=== PATIENT | female | born 1995 | race Caucasian/White ===

== ENCOUNTER 2022-07-18 00:05 | Inpatient (IN) | payer OTHER ==
[~2022-07-18] VITALS: Ht 152.4 cm; Wt 83.5 kg
--- NOTE | 2022-07-18 00:34 | NUR ---
both nares swabbed, sent test to lab
--- NOTE | 2022-07-18 12:11 | PR ---
[facility] [address] [facility] [place], [place] [address] Signed Progress Notes IP Datetime Report Generated by CPN: 07/18/2022 12:11 PROGRESS NOTES: [id number] Impression: Reassuring Heart Rate Procedures: Sterile Vag Exam Plan: Continue Present Management VITAL SIGNS: [id number] Vital Signs: Reviewed; Within Normal Limits EXAM: [id number] Dilatation: 1.5 Effacement: 50 Station: -3 Contractions: q 2 to 4 min MEMBRANES: [id number] Comments: Some progress. AROM attempted but no fluid seen. Will continue. FETUS A: [id number] FHR Baseline: 140 Variability: Moderate 6-25bpm Accelerations: 15X15 Decelerations: None FHR Category: Category I Presentation: Vertex Comments on Fetus A: no evidence of metabolic acidosis FETUS B: [id number] Signing Physician: Janki Trujillo MD Copies: ~ *Electronically Signed* 07/18/22 1211 JANKI TRUJILLO MD PATIENT NAME: BONBRANDON YUNIOR PROGRESS NOTE DATE OF : [birth year] PHYSICIAN: JANKI TRUJILLO MD RPT #: [id number] REPORT IS CONFIDENTIAL AND NOT TO BE RELEASED WITHOUT AUTHORIZATION
--- NOTE | 2022-07-18 16:34 | PR ---
[facility] [address] [place], [place] [address] Signed Progress Notes IP Datetime Report Generated by CPN: 07/18/2022 16:34 PROGRESS NOTES: [id number] Impression: Reassuring Heart Rate Procedures: Intrauterine Pressure Catheter; Sterile Vag Exam Plan: Augmentation VITAL SIGNS: [id number] Vital Signs: Reviewed; Within Normal Limits EXAM: [id number] Dilatation: 2.5 Effacement: 50 Station: -2 Contractions: q 2 to 4 min MEMBRANES: [id number] ROM Note: AROM attempted by Ronnie ELLIS at this time, unsuccessful Comments: Comfortable after epidural but with recent episode of hypotension. Very slow progress and feel contractions likely inadequate. Will place IUPC and augment as contractions inadequate after placement. FETUS A: [id number] FHR Baseline: 140 Variability: Moderate 6-25bpm Accelerations: 15X15 Decelerations: None FHR Category: Category I Presentation: Vertex Comments on Fetus A: no evidence of metabolic acidosis FETUS B: [id number] Signing Physician: Janki Trujillo MD Copies: ~ *Electronically Signed* 07/18/22 1634 JANKI TRUJILLO MD PATIENT NAME: BRANDON CROCKETT PROGRESS NOTE DATE OF : [birth year] PHYSICIAN: JANKI TRUJILLO MD RPT #: [id number] REPORT IS CONFIDENTIAL AND NOT TO BE RELEASED WITHOUT AUTHORIZATION
--- NOTE | 2022-07-20 07:35 | PR ---
[facility] [address] [facility] [place] [address] Signed PP Progress Notes Datetime Report Generated by CPN: 07/20/2022 07:35 SUBJECTIVE: [id number] Pain: Within Normal Limits Vital Signs: [id number] Vital Signs: Reviewed; Within Normal Limits Cardiovascular: Not Done Respiratory: Not Done Abdomen/Uterus: Abnormal Lochia: Normal Vulva/Perineum: Not Done Breasts: Not Done CVA Tenderness: Not Done Extremities: Normal Incision: Not Applicable Progress: Normal Exam Comments: Fundus firm, NT @ U-2. H/H 10.4/30.5, WBC 13.9, plat 287k IMPRESSION/PLAN/PROCEDURES: [id number] Impression: Normal Progression Plan: Discharge Procedures: Rhogam Progress Notes: Doing well. She desires D/C. Signing Physician: Janki Trujillo MD Copies: ~ *Electronically Signed* 07/20/22 0735 JANKI TRUJILLO MD PATIENT NAME: BRANDON CROCKETT PROGRESS NOTE DATE OF : [birth year] PHYSICIAN: JANKI TRUJILLO MD RPT #: [id number] REPORT IS CONFIDENTIAL AND NOT TO BE RELEASED WITHOUT AUTHORIZATION
== END 2022-07-20 10:45 | disposition home or self-care (01) | DRG 807 ==
LOC: FBC 00:05
PROVIDERS: ADMIT Obstetrics & Gynecology; ATTEND Obstetrics & Gynecology
PROC: 10E0XZZ Delivery of Products of Conception, External Approach (ICD-10-PCS; principal; 2022-07-18)
PROC: 0HQ9XZZ Repair Perineum Skin, External Approach (ICD-10-PCS; 2022-07-18)
PROC: 3E0P7VZ Introduction of Hormone into Female Reproductive, Via Natural or Artificial Opening (ICD-10-PCS; 2022-07-18)
PROC: 3E0R3BZ Introduction of Anesthetic Agent into Spinal Canal, Percutaneous Approach (ICD-10-PCS; 2022-07-18)
DX: O70.0 First degree perineal laceration during delivery (principal); Z37.0 Single live birth; O69.1XX0 Labor and delivery complicated by cord around neck, with compression, not applicable or unspecified; O99.334 Smoking (tobacco) complicating childbirth; F17.210 Nicotine dependence, cigarettes, uncomplicated; Z67.11 Type A blood, Rh negative; Z20.822 Contact with and (suspected) exposure to COVID-19; Z3A.39 39 weeks gestation of pregnancy; Z79.899 Other long term (current) drug therapy
CPT/HCPCS: 36415; 83030; 85027; 86850; 86900; 86901; 87502; A9270; C9803; J2590; J2790; J7121; U0003

== ENCOUNTER 2023-10-23 00:04 | Inpatient (IN) | payer OTHER ==
[~2023-10-23] VITALS: Ht 152.4 cm; Wt 83.5 kg
[~2023-10-23 00:04] MED LIST: CALCIUM CARBONATE 500 MG CHEW PO PRN; LACTATED RINGER'S 1,000 ML IV SCH; MAGNESIUM HYDROXIDE/AL HYDROX 30 ML CUP PO PRN; miSOPROStoL 25 MCG TAB PV SCH
[2023-10-23] MEDS ORDERED: OXYTOCIN/DEXTROSE 5% 20 UNITS/100 ML BAG IV SCH (00:15)
[2023-10-23] MEDS ORDERED: LIDOCAINE 2% VISCOUS 6 ML SYR TOP ONE ×3 (00:15→17:30)
[2023-10-23 01:00] VITALS: BP 120/60
[2023-10-23 01:13] LABS: HEMATOCRIT 32.3 % (35.0-50.0); HEMOGLOBIN 11.1 g/dL (12.0-18.0); MCH 31.2 (27-36); MCHC 34.3 g/dl (30-36); MCV 90.9 fl (81-99); RBC 3.55 M/ul (4.3-5.7)
[2023-10-23 02:00] LABS: ABO A; ANTIBODY SCREEN POSITIVE; RH NEGATIVE
[2023-10-23 02:01] LABS: ANTIBODY IDENTIFICATION ANTI-D
[2023-10-23 03:11] LABS: AMPHETAMINES, URINE NEGATIVE (NEGATIVE); BARBITURATES, URINE NEGATIVE (NEGATIVE); BENZODIAZEPINE, URINE NEGATIVE (NEGATIVE); BUPRENORPHINE, URINE NEGATIVE (NEGATIVE); CANNABINOID, URINE NEGATIVE (NEGATIVE); COCAINE, URINE NEGATIVE (NEGATIVE); ECSTASY, URINE NEGATIVE (NEGATIVE); FENTANYL, URINE NEGATIVE (NEGATIVE); METHADONE, URINE NEGATIVE (NEGATIVE); OPIATES, URINE NEGATIVE (NEGATIVE); OXYCODONE, URINE NEGATIVE (NEGATIVE); PHENCYCLIDINE, URINE NEGATIVE (NEGATIVE)
[2023-10-23] MEDS ORDERED: ROPIVACAINE 0.2% 200 ML BAG ONE (08:54)
[2023-10-23] MEDS ORDERED: fentaNYL citrate 100 MCG/2 ML VIAL ONE (08:54)
[2023-10-23] MEDS ORDERED: OXYTOCIN/0.9 % SODIUM CHLORIDE 500 ML IV SCH ×2 (12:00→17:30)
--- NOTE | 2023-10-23 13:07 | PR ---
[facility] [address] [facility] [place], [place] [address] Signed Progress Notes IP Datetime Report Generated by CPN: 10/23/2023 13:07 PROGRESS NOTES: [id number] Impression: Reassuring Heart Rate Procedures: Intrauterine Pressure Catheter Plan: Continue Present Management VITAL SIGNS: [id number] Vital Signs: Reviewed; Within Normal Limits EXAM: [id number] Dilatation: 3.0 Effacement: 40 Station: -2 Contractions: not picking up well MEMBRANES: [id number] Comments: Not much progress. Contractions not picking up well. Will place IUPC and increase pitocin as needed. FETUS A: [id number] FHR Baseline: 140 Variability: Moderate 6-25bpm Accelerations: 15X15 Decelerations: None FHR Category: Category I Presentation: Vertex Comments on Fetus A: no evidence of metabolic acidosis FETUS B: [id number] Signing Physician: Janki Trujillo MD Copies: ~ *Electronically Signed* 10/23/23 1307 JANKI TRUJILLO MD PATIENT NAME: BONBRANDON YUNIOR PROGRESS NOTE DATE OF : [birth year] PHYSICIAN: JANKI TRUJILLO MD RPT #: [id number] REPORT IS CONFIDENTIAL AND NOT TO BE RELEASED WITHOUT AUTHORIZATION
[2023-10-23] MEDS ORDERED: Ropivacaine HCl 0.5% 30 ML VIAL ONE (16:02)
[2023-10-23] MEDS ORDERED: dexmedeTOMIDine HCl 200 MCG/2 ML VIAL ONE (16:03)
[2023-10-23] MEDS ORDERED: TRANEXAMIC ACID IN NACL,ISO-OS 100 ML IV ONE (17:12)
[2023-10-23] MEDS ORDERED: IBUPROFEN 600 MG TAB PO PRN (17:30)
[2023-10-23] MEDS ORDERED: METHYLERGONOVINE MALEATE 0.2 MG/ML AMP IM ONE (17:30)
[2023-10-23] MEDS ORDERED: MAGNESIUM HYDROXIDE/AL HYDROX 30 ML CUP PO PRN (17:30)
[2023-10-23] MEDS ORDERED: HYDROCORTISONE ACETATE 25 MG SUPP PR PRN (17:30)
[2023-10-23] MEDS ORDERED: WITCH HAZEL/GLYCERIN 1 EA PAD TOP PRN (17:30)
[2023-10-23] MEDS ORDERED: HYDROCODONE/ACETA 5/325 TAB PO PRN (17:30)
[2023-10-23] MEDS ORDERED: MAGNESIUM HYDROXIDE 30 ML UDC PO PRN (17:30)
[2023-10-23] MEDS ORDERED: ACETAMINOPHEN 325 MG TAB PO PRN (17:30)
[2023-10-23] MEDS ORDERED: CALCIUM CARBONATE 500 MG CHEW PO PRN (17:30)
[2023-10-23] MEDS ORDERED: BENZOCAINE 60 ML AEROSOL TOP PRN (17:30)
[2023-10-23] MEDS ORDERED: SENNOSIDES/DOCUSATE 1 EA TAB PO SCH (21:00)
[2023-10-24 05:45] LABS: HEMATOCRIT 32.5 % (35.0-50.0); MCH 31.3 (27-36); MCV 92.1 fl (81-99); RBC 3.53 M/ul (4.3-5.7); RDW 12.7 (10.5-15.0)
[2023-10-24 06:46] LABS: ABO A; ANTIBODY SCREEN NEGATIVE; RH NEGATIVE; RHIG VIAL 1 RG23003-C
[2023-10-24 06:47] LABS: FETAL HEMOGLOBIN SCREEN NEGATIVE; RHIG DOSE 1; RHIG STATUS CANDIDATE
--- NOTE | 2023-10-24 10:23 | PR ---
[facility] [place] [facility] [address] [facility] [place], [place] [address] Signed PP Progress Notes Datetime Report Generated by CPN: 10/24/2023 10:23 SUBJECTIVE: [id number] Pain: Within Normal Limits Nausea/Vomiting: Denies Vital Signs: [id number] Vital Signs: Reviewed; Within Normal Limits Cardiovascular: Not Done Respiratory: Not Done Abdomen/Uterus: Abnormal Lochia: Normal Vulva/Perineum: Not Done Breasts: Not Done CVA Tenderness: Not Done Extremities: Normal Incision: Not Applicable Progress: Normal Exam Comments: Fundus firm, NT @ U-2. H/H 11/32.5, WBC 14.1, plat 226k IMPRESSION/PLAN/PROCEDURES: [id number] Impression: Normal Progression Plan: Discharge Procedures: Rhogam Progress Notes: Doing well. She desires D/C at 24 hrs. Signing Physician: Janki Trujillo MD Copies: ~ *Electronically Signed* 10/24/23 1023 JANKI TRUJILLO MD PATIENT NAME: BRANDON CROCKETT PROGRESS NOTE DATE OF : [birth year] PHYSICIAN: JANKI TRUJILLO MD RPT #: [id number] REPORT IS CONFIDENTIAL AND NOT TO BE RELEASED WITHOUT AUTHORIZATION
== END 2023-10-24 20:10 | disposition home or self-care (01) | DRG 807 ==
LOC: FBC 00:04
PROVIDERS: ADMIT Obstetrics & Gynecology; ATTEND Obstetrics & Gynecology
PROC: 10E0XZZ Delivery of Products of Conception, External Approach (ICD-10-PCS; principal; 2023-10-23)
PROC: 10907ZC Drainage of Amniotic Fluid, Therapeutic from Products of Conception, Via Natural or Artificial Opening (ICD-10-PCS; 2023-10-23)
PROC: 3E0P7VZ Introduction of Hormone into Female Reproductive, Via Natural or Artificial Opening (ICD-10-PCS; 2023-10-23)
PROC: 10H07YZ Insertion of Other Device into Products of Conception, Via Natural or Artificial Opening (ICD-10-PCS; 2023-10-23)
PROC: 4A1HXCZ Monitoring of Products of Conception, Cardiac Rate, External Approach (ICD-10-PCS; 2023-10-23)
PROC: 3E0234Z Introduction of Serum, Toxoid and Vaccine into Muscle, Percutaneous Approach (ICD-10-PCS; 2023-10-24)
DX: O26.893 Other specified pregnancy related conditions, third trimester (principal); Z37.0 Single live birth; Z3A.39 39 weeks gestation of pregnancy; O69.81X0 Labor and delivery complicated by cord around neck, without compression, not applicable or unspecified; Z67.11 Type A blood, Rh negative; Z23 Encounter for immunization; O75.89 Other specified complications of labor and delivery; O99.344 Other mental disorders complicating childbirth; F41.9 Anxiety disorder, unspecified; F32.A Depression, unspecified; O99.334 Smoking (tobacco) complicating childbirth; F17.290 Nicotine dependence, other tobacco product, uncomplicated
CPT/HCPCS: 36415; 80307; 83030; 85027; 86850; 86870; 86900; 86901; A9270; J2210; J2590; J2790; J2795; J3010

== ENCOUNTER 2023-12-19 06:00 | Day surgery (SDC) | payer BC, OTHER ==
[2023-12-10 11:21] VITALS: BP 112/70
[~2023-12-19] VITALS: Ht 152.4 cm; Wt 78.6 kg
--- NOTE | ~2023-12-19 | OR ---
[facility] [address] [place], [place] [address] Draft DATE OF OPERATION: 12/19/2023 SURGEON: Janki Trujillo MD PREOPERATIVE DIAGNOSIS: Risk reducing salpingectomy, undesired fertility. POSTOPERATIVE DIAGNOSIS: Risk reducing salpingectomy, undesired fertility. PROCEDURE: Laparoscopy with bilateral salpingectomy. ANESTHESIA: General ET. ESTIMATED BLOOD LOSS: Minimal. DRAINS: None. INDICATIONS AND FINDINGS: The patient is a 28-year-old female, 3, para 3, status post recent vaginal delivery approximately 8 weeks ago who desired risk reducing salpingectomy. She has been extensively counseled. She understood this would render her sterile. At the time of surgery, exam under anesthesia was normal. At the time of laparoscopy, the tubes and ovaries were normal. There was a soft area on the uterus just below the left cornu, which was left undisturbed. DESCRIPTION OF PROCEDURE: The patient was prepped and draped in the dorsal lithotomy position. An open-sided speculum was placed. The anterior lip of the cervix was visualized and grasped with single-tooth tenaculum. The Hulka clamp was then placed and the tenaculum and speculum were removed. Attention was directed above the infraumbilical area was injected with 0.5% Marcaine plain. An incision was made with a knife, and each layer serially elevated incised until the fascia was opened and identified and stay sutures of 0 Vicryl were placed. The abdomen was entered bluntly and Yvon cannula placed. Placement of the scope confirmed proper positioning. CO2 was then introduced into the abdomen under low pressures. The pelvis was visualized and the planned procedure appeared PATIENT NAME: BRANDON CROCKETT OPERATIVE REPORT DATE OF : [birth year] REPORT #: [id number] PHYSICIAN: JANKI TRUJILLO MD PCP: JANKI TRUJILLO MD REPORT IS CONFIDENTIAL AND NOT TO BE RELEASED WITHOUT AUTHORIZATION [facility] [address] [place], [place] [address] Draft appropriate. The secondary ports were placed. These were placed laterally slightly below the level of the umbilicus. Each of these areas was transilluminated, injected with the Marcaine, incision made with a knife and the trocars placed under direct vision. These were 5 mm ports. The patient's right tube was identified and the LigaSure [place] device was used to serially coagulate the mesosalpinx from the fimbriated end to the cornu and divided. The specimen was repeated through the port. The same procedure was carried out on the patient's left tube. Following this, there was some bleeding along the left mesosalpinx and this was controlled with the LigaSure device. The abdomen was copiously irrigated inspected and good hemostasis was noted. The instruments removed from the abdomen after allowing as much CO2 as possible to escape. The fascial incision of the umbilicus was re-identified and closed with a running suture of 0 Vicryl. Bleeding points in the subcu were controlled with cautery. The skin incisions were closed with subcuticular sutures of 3-0 Vicryl Rapide. Attention was directed down below, the inserts removed. There was initially some bleeding from the Hulka site, but this did respond to pressure. All sponge and needle counts were correct. She was taken to the recovery room in good condition. MD AFIA Le/YAIMA /[id number] Copies: ~ PATIENT NAME: BRANDON CROCKETT OPERATIVE REPORT DATE OF : [birth year] REPORT #: [id number] PHYSICIAN: JANKI TRUJILLO MD PCP: JANKI TRUJILLO MD REPORT IS CONFIDENTIAL AND NOT TO BE RELEASED WITHOUT AUTHORIZATION
[~2023-12-19 06:00] MED LIST changes: +BUPROPION HCL150 M2 PO; -CALCIUM CARBONATE 500 MG CHEW PO PRN; +CRANBERRY125 MG PO; +ECHINACEA EXTR125 MG PO; +IRON325 M1 PO; -MAGNESIUM HYDROXIDE/AL HYDROX 30 ML CUP PO PRN; +[UNRECOGNIZED DRUG - OTHER] PO; -miSOPROStoL 25 MCG TAB PV SCH
[2023-12-19 06:13] VITALS: BP 115/65
[2023-12-19] MEDS ORDERED: MIDAZOLAM HCL 2 MG/2 ML VIAL ONE (06:33)
[2023-12-19] MEDS ORDERED: LACTATED RINGER'S 1,000 ML IV ONE (06:33)
[2023-12-19] MEDS ORDERED: DEXAMETHASONE SOD PHOS 4 MG/ML VIAL ONE (06:33)
[2023-12-19] MEDS ORDERED: KETOROLAC TROMETHAMINE 30 MG/ML VIAL ONE (06:33)
[2023-12-19] MEDS ORDERED: ROCURONIUM BROMIDE 50 MG/5 ML SYR ONE (06:33)
[2023-12-19] MEDS ORDERED: propofoL 200 MG/20 ML VIAL ONE (06:33)
[2023-12-19] MEDS ORDERED: FAMOTIDINE 20 MG/ 2 ML VIAL ONE (06:33)
[2023-12-19] MEDS ORDERED: LIDOCAINE HCL 4% 5 ML AMP ONE (06:33)
[2023-12-19] MEDS ORDERED: fentaNYL citrate 100 MCG/2 ML VIAL ONE (06:33)
[2023-12-19] MEDS ORDERED: ondansetron HCL 4 MG/2 ML VIAL ONE (06:33)
[2023-12-19] MEDS ORDERED: SUGAMMADEX SODIUM 200 MG/2 ML ML ONE (06:33)
[2023-12-19] MEDS ORDERED: SUCCINYLCHOLINE IN 0.9% NACL 200 MG/10 ML SYRINGE ONE (06:33)
[2023-12-19] MEDS ORDERED: METOCLOPRAMIDE HCL 10 MG/2 ML SDV ONE (06:33)
[2023-12-19] MEDS ORDERED: BUPIVACAINE HCL 0.5% 30 ML VIAL ONE (06:43)
[2023-12-19] MEDS ORDERED: IBLOOD GLUCOSE TEST STRIP 1 EA TEST VI PRN ×2 (07:00→07:45)
[2023-12-19] MEDS ORDERED: METOCLOPRAMIDE HCL 10 MG/2 ML SDV IV SCH (07:00)
[2023-12-19] MEDS ORDERED: LIDOCAINE HCL 1% 5 ML SDV INJ ONE (07:00)
[2023-12-19] MEDS ORDERED: FAMOTIDINE 20 MG/ 2 ML VIAL IV SCH (07:00)
[2023-12-19] MEDS ORDERED: fentaNYL citrate 50 MCG/ML SDV IV PRN (07:45)
[2023-12-19] MEDS ORDERED: ondansetron HCL 4 MG/2 ML VIAL IV PRN ×2 (07:45→08:15)
[2023-12-19] MEDS ORDERED: NALOXONE HCL 0.4 MG SYR IV PRN ×2 (07:45→08:15)
[2023-12-19] MEDS ORDERED: droPERidol 5 MG/2 ML VIAL IV PRN (07:45)
[2023-12-19] MEDS ORDERED: METOCLOPRAMIDE HCL 10 MG/2 ML SDV IV PRN ×2 (07:45→08:15)
[2023-12-19] MEDS ORDERED: PROCHLORPERAZINE EDISYLATE 10 MG/2 ML VIAL IV PRN ×2 (07:45→08:15)
[2023-12-19] MEDS ORDERED: MORPHINE SULFATE 10 MG/ML VIAL IV PRN ×2 (07:45→08:15)
[2023-12-19] MEDS ORDERED: ACETAMINOPHEN 500 MG TAB PO SCH (08:15)
[2023-12-19] MEDS ORDERED: SIMETHICONE 125 MG TABLET CHEWABLE PO PRN (08:15)
[2023-12-19] MEDS ORDERED: LACTATED RINGER'S 1,000 ML IV SCH (08:15)
[2023-12-19] MEDS ORDERED: FAMOTIDINE 20 MG TAB PO PRN (08:15)
[2023-12-19] MEDS ORDERED: MAGNESIUM HYDROXIDE/AL HYDROX 30 ML CUP PO PRN (08:15)
[2023-12-19] MEDS ORDERED: ondansetron HCL 4 MG TAB PO PRN (08:15)
[2023-12-19] MEDS ORDERED: OXYCODONE HCL 5 MG TAB PO PRN (08:15)
--- NOTE | 2023-12-19 08:41 | NUR ---
12/19/23 0841 Carol Sandoval 0811 PT ARRIVED IN PACU NON RESPONSIVE TO NOXIOUS STIMULI WITH OPA IN PLACE. CHIN LIFT HELD BY RN. 0820 REPOSITIONED HEAD TO KEEP AIRWAY OPEN WITHOUT CHIN LIFT. 0832 PT REACTIVE. OPA REMOVED. 0840 OXYGEN REMOVED. SATS 100% ON RA. NO C/O'S.
[2023-12-19 08:52] VITALS: BP 100/61
--- NOTE | 2023-12-19 08:54 | NUR ---
DARRION 0850: PT IS BACK TO DS FROM PACU. IS AT THE BEDSIDE. CALL LIGHT WITHIN REACH. SHE WOULD LIKE WATER, APPLE JUICE, AND DELIA CRACKERS. NO C/O PAIN OR NAUSEA. DC CRITERIA REVIEWED WITH PT AND .
[2023-12-19 09:51] VITALS: BP 100/51
--- NOTE | 2023-12-19 09:52 | NUR ---
DARRION 0950: PT IS TOLERATING WATER, APPLE JUICE, DELIA CRACKERS, AND JELLO. SHE DENIES NAUSEA. IS AT THE BEDSIDE. PT WOULD LIKE TO GET UP TRY AND USE THE BATHROOM.
--- NOTE | 2023-12-19 10:27 | NUR ---
LE 0955: PT IS ASSISTED UP OOB WITH STANDBY ASSIST TO THE BATHROO. SHE IS ABLE TO VOID 100MLS OF YELLOW URINE. SHE AMBUALTES BACK TO HER ROOM. SHE INDICATES THAT SHE WOULD LIKE TO GO HOME AT THIS TIME. SHE IS EDUCATED ON HOW TO BEST DRESS HERSELF AND TO OPEN HER CURTAIN WHEN READY. SHE WOULD LIKE TYLENOL FOR THE DRIVE HOME. LE 1010: PT'S UMBILICAL SITE IS OOZING, THE BANDIAD IS REMOVED AND REPLACED WITH GAUZE PADS AND MEDIPORE TAPE. LE 1017: PT AND ARE GIVEN WRITTEN AND VERBAL DC INSTRUCTIONS. THEY BOTH VERBALIZE UNDERSTANDING. QUESTIONS ARE ASKED AND ANSWERED. LE 1020: PT IS TAKEN TO PERSONAL VEHICLE VIA WC. SHE IS ABLE TO TRANSFER HERSELF FROM WC TO CAR WITHOUT ISSUES.
[2023-12-19] MEDS ORDERED: IBUPROFEN 800 MG TAB PO SCH (14:00)
--- NOTE | 2023-12-21 14:56 | PATH ---
[facility] [address] [place], [place] [address] Signed SPECIMEN(S): A BILATERAL FALLOPIAN TUBES SPECIMEN SOURCE: A. BILATERAL FALLOPIAN TUBES CLINICAL HISTORY: Risk reduction ovarian cancer; patient desires sterilization FINAL PATHOLOGIC DIAGNOSIS: Bilateral fallopian tubes: - Two segments of benign fimbriated oviducts. JVR:clv MICROSCOPIC EXAMINATION: Histologic sections of all submitted blocks are examined by light microscopy. These findings, together with the gross examination, support the pathologic diagnosis. GROSS DESCRIPTION: The specimen, labeled and designated "Shon Crockett, bilateral fallopian tubes," is received in formalin and consists of 2 fallopian tubes with attached fimbriated ends. The first fallopian tube measures 6.0 cm in length by 0.6 cm in greatest diameter. The second fallopian tube measures 6.8 cm in length by 0.5 cm in greatest diameter with 3 peritubular cysts range size from less than 0.1 to 0.6 cm. Ward Maid sections submitted in cassettes A1 and A2 respectively. JM (under the direct supervision of a pathologist) The Gross Description was prepared using a voice recognition system. The report was reviewed for accuracy; however, sound-alike word errors, addition and/or deletions may occur. If there is any question about this report, please contact Client Services. PERFORMING LABORATORY: Technical component was performed by [facility], [address] [place] [id number] (CLIA# [id number]). Professional interpretation was performed by [facility], [address] [place] [id number] (CLIA#: [id number]). Diagnostician: Jose Mack MD Pathologist Electronically Signed 12/21/2023 PATIENT NAME: BRANDON CROCKETT PATHOLOGY DATE OF : [birth year] REPORT #: [id number] PHYSICIAN: [facility] PCP: AUNDREA ANGELO MD REPORT IS CONFIDENTIAL AND NOT TO BE RELEASED WITHOUT AUTHORIZATION [address] [address] Signed Copies: ~ PATIENT NAME: BRANDON CROCKETT PATHOLOGY DATE OF : [birth year] REPORT #: [id number] PHYSICIAN: [facility] PCP: AUNDREA ANGELO MD REPORT IS CONFIDENTIAL AND NOT TO BE RELEASED WITHOUT AUTHORIZATION
== END 2023-12-19 10:20 | disposition home or self-care (01) ==
LOC: DS 06:00
PROVIDERS: ATTEND Obstetrics & Gynecology
PROC: 0UT74ZZ Resection of Bilateral Fallopian Tubes, Percutaneous Endoscopic Approach (ICD-10-PCS; principal; 2023-12-19 07:30)
DX: Z30.2 Encounter for sterilization (principal); Z79.899 Other long term (current) drug therapy
CPT/HCPCS: 00840; A9270; J0330; J1100; J1885; J2250; J2405; J2704; J2765; J3010; J3490; J7121